=== PATIENT | female | born 1995 | race Caucasian/White ===

== ENCOUNTER 2022-05-16 05:54 | Emergency (ER) | payer MEDICAID, SELFPAY ==
[2022-05-16 05:55] VITALS: BP 131/109; PULSE 79; RESP 18; TEMP 36.4; O2SAT 100; BMI 22.2
--- NOTE | 2022-05-16 06:11 | CT_ITS ---
STUDY: CT HEAD W/O CONTRAST INJECTION REASON FOR EXAM: Female, 26 years old. ?? right sided sinus headache / infection RADIATION DOSAGE (If Supplied By Facility): CTDIvol = ( 44.99 ) mGy, DLP = ( 745.49 ) mGycm TECHNIQUE: Transaxial CT imaging of the brain was performed without administration of intravenous contrast material. Individualized dose optimization techniques were used for this CT. COMPARISON: No relevant priors. FINDINGS: BRAIN: No acute bleed. No edema. Gallo-white matter differentiation is maintained. VENTRICLES AND SULCI: Not dilated. EXTRA-AXIAL: No hemorrhage, fluid collection, or mass. CALVARIUM / SKULL BASE: Unremarkable. FACE/SINUSES: The sphenoid sinuses are nearly completely opacified. There is mucosal thickening in the left maxillary sinus and the ethmoid air cells are partially opacified more so on the left. No air-fluid levels. SOFT TISSUES: Unremarkable. CT/Brain/Head without Contrast IMPRESSION: No acute intracranial abnormality. Sinus disease. Electronically Signed: Yari Lazo MD at 7:15 EST ,
--- NOTE | 2022-05-16 06:12 | EDS_ITS ---
HPI History of Present Illness Chief Complaint: Headache Informant: patient Onset/Context/Timing Onset: Days Context: Gradual Timing: Continuous Quality -Headache: Negative for Similar Prior Headaches Current Severity: Mild Maximum Severity: Moderate Associated Symptoms/Injury Associated Symptoms: Positive for Sinus Pressure; Negative for Fever, Nausea, Vomiting, Sore Throat, Numbness, Preceding Aura, Visual Changes, Blurred Vision, Photophobia or Visual Loss Injury - BONE: Negative for Direct Trauma, Fall or Assault Narrative Narrative: 26-year-old female no seen past medical or surgical history. Said she had cold- like symptoms for least a week. And then developed right-sided headache. States that they nasal drainage is now yellowish and bloody. She has never had a headache like this before. It is somewhat positional. She denies any fever. No neck pain. No head or neck trauma. Prior similar symptoms: No Recent Illness/Hospitalization: No PFSH PFSH Medical History no medical history no medical history Home Medications amoxicillin 875 mg-potassium clavulanate 125 mg tablet 1 tab PO BID 10 days #20 tabs 05/16/22 [Rx Last Taken Unknown] Allergy/AdvReac Type Severity Reaction Status Date / Time No Known Allergies Allergy Verified 05/16/22 05:58 Surgical History no surgical history no surgical history Social History Smoking Status: Current every day smoker tobacco type: cigarettes ROS ROS ED ROS Narrative URI symptoms. Yellowish nasal drainage. Review of Systems ROS Unobtainable: Denies due to encephalopathy Constitutional Constitutional ED: Denies chills or fever(s) Eyes Eyes: Denies blurry vision ENT ENT ED: Reports rhinorrhea; Denies ear pain or sore throat Cardiovascular Cardiovascular: Denies chest pain Respiratory/Chest Respiratory/Chest: Reports cough Gastrointestinal Gastrointestinal: Denies abdominal pain Genitourinary Genitourinary ED: Denies dysuria Musculoskeletal Musculoskeletal: Denies arthralgias Integumentary Denies abscess Neurologic Neurologic: Reports headache(s) Psychiatric Psychiatric: Denies anxiety Endocrine Endocrinology: Denies polydipsia Hematologic/Lymphatic Hematologic/Lymphatic: Denies easy bleeding Allergic/Immunologic Allergic/Immunologic ED: Denies mouth swelling or tongue swelling EXAM Physical Exam Narrative Exam Narrative: Well-appearing 18-year-old female. Vital signs stable afebrile. H EENT exam pupils round reactive light extra motions are intact. Posterior pharynx normal. Moist mucous members. No erythema or exudate. TMs normal. No frontal or maxillary sinus tenderness. Neck nontender no lymphadenopathy. Able to touch chin to chest. No meningismus. Lungs clear to auscultation bilaterally. Heart regular rhythm rate about 80 no murmur. Abdomen soft nontender. Moving all 4 extremities. Neurovascular intact. Neurologic exam normal. NIH 0. Normal conference center coordinator strength. Normal fingertip to nose. Normal dorsi plantar flexion. Const Vital Signs: 05/16/22 05:55 Temperature 97.5 F L Temperature Source Oral Pulse Rate 79 Respiratory Rate 18 Blood Pressure 131/109 H Blood Pressure Mean 116 Pulse Ox 100 Oxygen Delivery Method Room Air Positive well nourished and well developed; Negative for obese, cachectic, contractures or unkempt General Appearance ED: well developed and NAD; Negative for unkempt, cachectic, contractures, cyanotic or diaphoretic Nutritional Appearance: Negative for cachectic or obese HEENT Reports normocephalic, TM's clear and moist mucous membranes; Denies dry mucous membranes HEENT Narrative: Yellowish rhinorrhea. atraumatic; Negative for trauma, tenderness, temporal artery tenderness or vesicular rash Face and Sinus: Negative for sinus tenderness Tympanic Membrane ED: Yes TM's clear Mouth ED: No dry mucous membranes Mouth: No dry mucous membranes Eyes PERRL and EOMs intact bilaterally General Eye ED: Negative for pale conjunctiva or scleral icterus Neck no lymphadenopathy, supple, no meningeal signs and no JVD General: Negative for tenderness Resp normal respiratory effort and clear to auscultation bilaterally Effort and Inspection: Negative for retractions Auscultation: Negative for rales, rhonchi or wheezes Cardio regular rate, regular rhythm, S1 normal heart sound, S2 normal heart sound and no murmurs Rate: Negative for bradycardia or tachycardic Rhythm: Negative for abnormal rhythm GI non-tender and non-distended Auscultation: normoactive bowel sounds Palpation: soft; Negative for firm, tender, guarding or rigid Back/Spine no CVA tenderness General Back: Negative for CVA tenderness Cervical Spine: Negative for cervical spine tenderness Thoracic Spine / Upper Back: Negative for thoracic spinal tenderness Lumbar Spine / Lower Back: Negative for lumbar spinal tenderness Extremity normal to inspection and full ROM General Extremety ED: Negative for edema or tenderness General Extremity: Negative for edema Neuro oriented x3, CN's II-XII intact bilaterally and no sensory deficits noted Sensorium / Orientation: awake, alert, oriented to person, oriented to place and oriented to time; Negative for orientation impaired, lethargic or stuporous Coordination / Balance: [id number] test normal Speech: speech normal Motor Exam: strength 5/5 throughout; Negative for general weakness or strength abnormal Comatose: Negative for other Psych mental status grossly normal Appearance: Negative for unkempt Attitude: No agitated Mood & Affect: Negative for depressed, anxious or tearful Skin Lesions: no lesions Rashes: no rashes MDM MDM MDM Narrative Medical decision making narrative: 26-year-old with URI type symptoms and now with headache and yellowish nasal drainage clinically I suspect this to be a sinus headache and sinus infection I cannot reproduce the pain on the frontal or maxillary sinuses. CAT scan being obtained. She did not like thing for pain. She has a normal neurologic exam. Repeat exam doing well at 7:23 AM. Patient be placed on Augmentin twice daily for 10 days for sinusitis and outpatient follow-up. Radiography Diagnostic Testing: Clinical Impression(s) from Imaging Studies Brain CT 05/16/22 06:11 IMPRESSION: No acute intracranial abnormality. Sinus disease. Electronically Signed: Yari Lazo MD at 7:15 EST , CAT scan shows no acute abnormality to brain but Escavite and sphenoid opacifica tion consistent with acute sinusitis. Discharge Plan Triage Chief Complaint: Headache ED Provider: Akil Saldivar Dx/Rx/DC Orders Clinical Impression: Acute infection of sinus Instructions: ED Sinus Headache, ED Sinusitis (Antibiotic Treatment) Prescriptions: New amoxicillin-pot clavulanate 875-125 mg tablet 1 tab PO BID 10 Days Qty: 20 0RF Primary Care Provider: Care Physician,No Primary Referrals: Cruzito Chavez MD [Med Staff - Supervisor Print Line] - 1 Week if not improving Care Physician,No Primary [Primary Care Provider] - Activity Restrictions/Additional Instructions: Plenty of fluids and rest. Tylenol and Motrin for pain and headache. Taken finish the antibiotic for the sinus infection. This should progressively improve if not follow-up with your doctor or primary care provider to be re- evaluated. Disposition Disposition: Home, Self Care
[2022-05-16] MEDS: Amox/Clavulanate 875 MG Tablet PO (07:33)
== END 2022-05-16 07:35 | disposition home or self-care (01) ==
PROVIDERS: Emergency Provider Emergency Medicine; Visit Provider Emergency Medicine
DX: J01.90 Acute sinusitis, unspecified (principal); F17.210 Nicotine dependence, cigarettes, uncomplicated
CPT/HCPCS: 70450; 99284; J7030